=== PATIENT | male | born 2000 | race Caucasian/White ===

== ENCOUNTER 2019-01-05 22:29 | Emergency (ER) | payer OTHER ==
[2019-01-05 23:04] LABS: #Basophils 0.1 thou/uL (0.0-0.2); #Eosinphils 0.3 thou/uL (0.0-0.7); #Lymphocytes 2.4 thou/uL (1.20-3.40); #Monocytes 0.6 thou/uL (0.11-0.59); #Neutrophils 3.6 thou/uL (1.40-6.50); %Basophils 1.6 % (0.0-1.0); %Eosinophils 4.9 % (0.0-10.0); %Lymphocytes 33.6 % (28.0-48.0); Hemoglobin 15.8 g/dL (14.0-18.0); Mean Corpuscular Hemoglobin 31.2 pg (25.0-35.0); Mean Corpuscular Volume 91.6 fL (78.0-98.0); Mean Platelet Volume 8.1 fL (7.4-10.4); Platelet Count 274 thou/uL (130-400); RBC Distribution Width 11.6 % (11.5-14.5); Red Blood Cell (RBC) Count 5.07 mill/uL (4.00-5.20); White Blood Cell (WBC) Count 7.1 thou/uL (4.8-10.8)
[2019-01-05 23:26] LABS: ALT (SGPT) 53 U/L (8-55); AST (SGOT) 26 U/L (10-45); Albumin 4.6 g/dL (3.5-5.0); Alkaline Phosphatase 78 U/L (Less than 750); Anion Gap 12 mmol/L (10-20); BUN (Urea Nitrogen) 14 mg/dL (8.4-21.0); Bilirubin, Total 0.4 mg/dL (0.2-1.2); Calc. Creatinine Clearance 0 mL/min (70-130); Calcium 9.8 mg/dL (7.8-10.44); Carbon Dioxide 26 mmol/L (22-29); Chloride 106 mmol/L (98-107); Estimated GFR-MDRD Greater than 90; Globulin 2.8 g/dL (2.4-3.5); Glucose 122 mg/dL (70-105); Potassium 4.2 mmol/L (3.5-5.1); Protein, Total 7.4 g/dL (6.0-8.3); Sodium 140 mmol/L (136-145)
[2019-01-05] MEDS ORDERED: diphenhydrAMINE 50 MG/ML VIAL ONE (23:39)
[2019-01-05] MEDS ORDERED: Ketorolac Tromethamine 30 MG/ML VIAL ONE (23:39)
[2019-01-05] MEDS ORDERED: Metoclopramide HCl 10 MG/2 ML VIAL ONE (23:39)
[2019-01-05] MEDS ORDERED: Bupivacaine 0.5% 10 ML VIAL ONE (23:59)
[2019-01-06] MEDS ORDERED: Bupivacaine 0.25% 10 ML VIAL ONE
== END 2019-01-06 01:12 | disposition home or self-care (01) ==
LOC: ERS 22:29
DX: R51 Headache (principal); R55 Syncope and collapse; Z71.6 Tobacco abuse counseling; F17.210 Nicotine dependence, cigarettes, uncomplicated; Z79.899 Other long term (current) drug therapy
CPT/HCPCS: 36416; 80053; 85025; 93005; 96365; 96375; J1200; J1885; J2765; J3490; S0020